=== PATIENT | female | born 1955 | race Caucasian/White ===

== ENCOUNTER 2018-12-07 21:17 | Observation (INO) | payer OTHER ==
--- NOTE | 2018-12-07 23:02 | ER ---
Nurse's Notes [facility] Name: Ashlyn Hughes Age: 63 yrs Sex: Female : 1955 Arrival Date: 12/07/2018 Time: 21:19 Bed 23 Private MD: Hailey Riley K Diagnosis: Cellulitis and acute lymphangitis of other parts of limb;Lymphedema, not elsewhere classified-right upper extremity Presentation: 12/07 21:48 Presenting complaint: Patient states: "I have had lymphedema in my right arm and today jd3 my right arm is swelling.". Transition of care: patient was not received from another setting of care. Onset of symptoms was December 07, 2018. Risk Assessment: Do you want to hurt yourself or someone else? Patient reports no desire to harm self or others. Initial Sepsis Screen: Does the patient meet any 2 criteria? No. Patient's initial sepsis screen is negative. Does the patient have a suspected source of infection? No. Patient's initial sepsis screen is negative. Care prior to arrival: None. 21:48 Method Of Arrival: Ambulatory jd3 21:48 Acuity: KLAUDIA 3 jd3 Historical: - Allergies: 21:51 No Known Allergies; jd3 - Home Meds: 21:51 losartan oral oral [Active]; Multiple Vitamins oral oral [Active]; Aspirin Oral jd3 [Active]; pro biotic [Active]; - PMHx: 21:51 breast cancer; Hypertension; jd3 - PSHx: 21:51 lymphectomy; jd3 - Immunization history:: Adult Immunizations up to date. - Social history:: Smoking status: Patient/guardian denies using tobacco. - Ebola Screening: : Patient negative for fever greater than or equal to 101.5 degrees Fahrenheit, and additional compatible Ebola Virus Disease symptoms. - Family history:: not pertinent. Screenin:25 Abuse screen: Denies threats or abuse. Denies injuries from another. Nutritional rr5 screening: No deficits noted. Tuberculosis screening: No symptoms or risk factors identified. Fall Risk None identified. Total Mercado Fall Scale indicates No Risk (0-24 pts). Assessment: 22:25 General: Appears in no apparent distress. comfortable, Behavior is calm, cooperative, rr5 appropriate for age. Pain: Denies pain. Neuro: Level of Consciousness is awake, alert, obeys commands, Oriented to person, place, time, situation, Appropriate for age. Cardiovascular: Capillary refill < 3 seconds Patient's skin is warm and dry. Respiratory: Airway is patent Respiratory effort is even, unlabored, Respiratory pattern is regular, symmetrical. GI: No signs and/or symptoms were reported involving the gastrointestinal system. : No signs and/or symptoms were reported regarding the genitourinary system. EENT: No signs and/or symptoms were reported regarding the EENT system. Derm: Skin temperature is warm Rash noted that is red, on right arm swollen right arm. Musculoskeletal: Swelling present in right arm. 23:40 Reassessment: Patient appears in no apparent distress at this time. Patient is alert, rr5 oriented x 3, equal unlabored respirations, skin warm/dry/pink. explained the plan of care and agreed to be admitted. 12/08 00:00 Reassessment: 's contact number SCOTT [phone] and [phone] ([email or web address]). rr5 00:30 Reassessment: Patient appears in no apparent distress at this time. Patient is alert, rr5 oriented x 3, equal unlabored respirations, skin warm/dry/pink. asleep on bed comfortably.no complaints made. Vital Signs: 12/07 21:51 BP 125 / 81; Pulse 99; Resp 17 S; Temp 98.9(O); Pulse Ox 95% on R/A; Weight 72.57 kg jd3 (R); Height 5 ft. 5 in. (165.10 cm) (R); Pain 2/10; 23:29 BP 134 / 79; Pulse 90; Resp 17; Pulse Ox 99% ; rr5 12/08 00:30 BP 131 / 70; Pulse 85; Resp 17; Pulse Ox 99% on R/A; rr5 12/07 21:51 Body Mass Index 26.63 (72.57 kg, 165.10 cm) jd3 ED Course: 12/07 21:19 Patient arrived in ED. am2 21:20 Hailey Riley MD is Private Physician. am2 21:49 Triage completed. jd3 21:52 Arm band placed on. jd3 22:04 James Luke MD is Attending Physician. marialuisa 22:10 Mamadou Simpson RN is Primary Nurse. rr5 22:59 Rosanne Gore MD is Hospitalizing Provider. marialuisa 23:17 UPPER EXTREMITY VENOUS UNILATE In Process Unspecified. EDMS 23:24 Patient has correct armband on for positive identification. Placed in gown. Bed in low rr5 position. Call light in reach. Side rails up X2. electronic news gathering editor on. Pulse ox on. NIBP on. 23:47 X-ray completed. Portable x-ray completed in exam room. Patient tolerated procedure kw well. 23:49 XRAY Chest (1 view) In Process Unspecified. EDMS 12/08 00:40 No provider procedures requiring assistance completed. Patient admitted, IV remains in rr5 place. intact, bleeding controlled, No redness/swelling at site. Pressure dressing applied. Administered Medications: 12/07 23:40 Drug: NS 0.9% 500 ml Route: IV; Rate: bolus; Site: left forearm; rr5 12/08 00:25 Follow up: Response: No adverse reaction; IV Status: Completed infusion; IV Intake: rr5 500ml 12/07 23:40 Dru.375 grams of (Zosyn 3.375 grams, NS 0.9% 100 ml) Route: IVPB; Infused Over: 60 rr5 mins; Site: left forearm; 12/08 00:29 Follow up: Response: No adverse reaction; IV Status: Completed infusion; IV Intake: rr5 100ml 00:30 Drug: NS 0.9% 1000 ml Route: IV; Rate: 125 ml/hr; Site: left forearm; rr5 00:30 Dru grams of (vancoMYCIN 1 grams, NS 0.9% 250 ml) Route: IVPB; Infused Over: 2 hrs; rr5 Site: left forearm; Intake: 00:25 IV: 500ml; Total: 500ml. rr5 00:29 IV: 100ml; Total: 600ml. rr5 Outcome: 12/07 23:01 Decision to Hospitalize by Provider. marialuisa 12/08 00:43 Admitted to ER Hold. Please see [facility] for further documentation. rr5 Condition: stable Instructed on the need for admit. 08:24 Patient left the ED. ss Signatures: Dispatcher [employer] James Grimaldo MD MD cha Smirch, Shelby, RN RN Taylor Hall Amanda am2 Davies, Jonathon RN RN jd3 Mamadou Simpson, RN RN rr5
--- NOTE | 2018-12-07 23:02 | EDPHYS ---
Physician Documentation [facility] Name: Ashlyn Huhges Age: 63 yrs Sex: Female : 1955 Arrival Date: 12/07/2018 Time: 21:19 Bed 23 Private MD: Hailey Riley K ED Physician James Luke HPI: 12/07 22:56 This 63 yrs old Female presents to ER via Ambulatory with complaints of Hand marialuisa Swelling, Arm Problem. 22:56 The patient or guardian reports decreased range of motion, pain, swelling, tenderness. marialuisa The complaints affect the right hand diffusely. Context: The problem was sustained at an unknown location. Onset: The symptoms/episode began/occurred 2 day(s) ago. Modifying factors: The symptoms are alleviated by elevation, holding still, the symptoms are aggravated by movement, dependent position. Associated signs and symptoms: The patient has no apparent associated signs or symptoms. Severity of symptoms: At their worst the symptoms were mild, moderate. The patient has not experienced similar symptoms in the past. Historical: - Allergies: 21:51 No Known Allergies; jd3 - Home Meds: 21:51 losartan oral oral [Active]; Multiple Vitamins oral oral [Active]; Aspirin Oral jd3 [Active]; pro biotic [Active]; - PMHx: 21:51 breast cancer; Hypertension; jd3 - PSHx: 21:51 lymphectomy; jd3 - Immunization history:: Adult Immunizations up to date. - Social history:: Smoking status: Patient/guardian denies using tobacco. - Ebola Screening: : Patient negative for fever greater than or equal to 101.5 degrees Fahrenheit, and additional compatible Ebola Virus Disease symptoms. - Family history:: not pertinent. ROS: 22:56 Constitutional: Negative for fever, chills, and weight loss, Eyes: Negative for injury, marialuisa pain, redness, and discharge, ENT: Negative for injury, pain, and discharge, Neck: Negative for injury, pain, and swelling, Cardiovascular: Negative for chest pain, palpitations, and edema, Respiratory: Negative for shortness of breath, cough, wheezing, and pleuritic chest pain, Abdomen/GI: Negative for abdominal pain, nausea, vomiting, diarrhea, and constipation, Back: Negative for injury and pain, : Negative for injury, bleeding, discharge, and swelling, Neuro: Negative for headache, weakness, numbness, tingling, and seizure, Psych: Negative for depression, anxiety, suicide ideation, homicidal ideation, and hallucinations, Allergy/Immunology: Negative for hives, rash, and allergies, Endocrine: Negative for neck swelling, polydipsia, polyuria, polyphagia, and marked weight changes, Hematologic/Lymphatic: Negative for swollen nodes, abnormal bleeding, and unusual bruising. 22:56 MS/extremity: Positive for pain, swelling, tenderness, of the right arm. Exam: 22:56 Constitutional: This is a well developed, well nourished patient who is awake, alert, marialuisa and in no acute distress. Head/Face: Normocephalic, atraumatic. Eyes: Pupils equal round and reactive to light, extra-ocular motions intact. Lids and lashes normal. Conjunctiva and sclera are non-icteric and not injected. Cornea within normal limits. Periorbital areas with no swelling, redness, or edema. ENT: Nares patent. No nasal discharge, no septal abnormalities noted. Tympanic membranes are normal and external auditory canals are clear. Oropharynx with no redness, swelling, or masses, exudates, or evidence of obstruction, uvula midline. Mucous membranes moist. Neck: Trachea midline, no thyromegaly or masses palpated, and no cervical lymphadenopathy. Supple, full range of motion without nuchal rigidity, or vertebral point tenderness. No Meningismus. Chest/axilla: Normal chest wall appearance and motion. Nontender with no deformity. No lesions are appreciated. Cardiovascular: Regular rate and rhythm with a normal S1 and S2. No gallops, murmurs, or rubs. Normal PMI, no JVD. No pulse deficits. Respiratory: Lungs have equal breath sounds bilaterally, clear to auscultation and percussion. No rales, rhonchi or wheezes noted. No increased work of breathing, no retractions or nasal flaring. Abdomen/GI: Soft, non-tender, with normal bowel sounds. No distension or tympany. No guarding or rebound. No evidence of tenderness throughout. Back: No spinal tenderness. No costovertebral tenderness. Full range of motion. Female : Normal external genitalia. Neuro: Awake and alert, GCS 15, oriented to person, place, time, and situation. Cranial nerves II-XII grossly intact. Motor strength 5/5 in all extremities. Sensory grossly intact. Cerebellar exam normal. Normal gait. Psych: Awake, alert, with orientation to person, place and time. Behavior, mood, and affect are within normal limits. 22:56 Skin: cellulitis, that is mild, that is moderate, induration, that is mild is noted, located on the right arm. Vital Signs: 21:51 BP 125 / 81; Pulse 99; Resp 17 S; Temp 98.9(O); Pulse Ox 95% on R/A; Weight 72.57 kg jd3 (R); Height 5 ft. 5 in. (165.10 cm) (R); Pain 10/10; 23:29 BP 134 / 79; Pulse 90; Resp 17; Pulse Ox 99% ; rr5 12/08 00:30 BP 131 / 70; Pulse 85; Resp 17; Pulse Ox 99% on R/A; rr5 12/07 21:51 Body Mass Index 26.63 (72.57 kg, 165.10 cm) jd3 MDM: 12/07 22:04 Patient medically screened. [facility] 12/07 22:56 Order name: Basic Metabolic Panel [facility] 12/07 22:56 Order name: CBC with Diff [facility] 12/07 22:56 Order name: LFT's 12/07 22:56 Order name: Magnesium [facility] 12/07 22:56 Order name: NT PRO-BNP [facility] 12/07 22:56 Order name: PT-INR [facility] 12/07 22:56 Order name: Troponin (emerg Dept Use Only) 12/07 22:56 Order name: XRAY Chest (1 view) 12/07 22:56 Order name: Blood Culture Adult (2) [facility] 12/07 22:56 Order name: Procalcitonin [facility] 12/07 23:20 Order name: Basic Metabolic Panel EDMI 12/07 23:20 Order name: Basic Metabolic Panel EDMS 12/07 23:20 Order name: CBC with Automated Diff EDMS 12/07 23:20 Order name: CBC with Automated Diff EDMS 12/07 22:56 Order name: EKG; Complete Time: 22:58 12/07 22:56 Order name: Cardiac monitoring; Complete Time: 23:23 marialuisa 12/07 22:56 Order name: EKG - Nurse/Tech; Complete Time: 00:06 [facility] 12/07 22:56 Order name: IV Saline Lock; Complete Time: 23:23 [facility] 12/07 22:56 Order name: Labs collected and sent; Complete Time: 00:06 [facility] 12/07 22:56 Order name: O2 Per Protocol; Complete Time: 23:23 [facility] 12/07 22:56 Order name: O2 Sat Monitoring; Complete Time: 23:23 [facility] 12/07 22:59 Order name: UPPER EXTREMITY VENOUS UNILATE [facility] 12/07 23:19 Order name: CONS Pharmacy Consult [facility] 12/07 23:19 Order name: CONS Pharmacy Consult [facility] 12/07 23:20 Order name: Regular EDMS Administered Medications: 23:40 Drug: NS 0.9% 500 ml Route: IV; Rate: bolus; Site: left forearm; rr5 12/08 00:25 Follow up: Response: No adverse reaction; IV Status: Completed infusion; IV Intake: rr5 500ml 12/07 23:40 Dru.375 grams of (Zosyn 3.375 grams, NS 0.9% 100 ml) Route: IVPB; Infused Over: 60 rr5 mins; Site: left forearm; 12/08 00:29 Follow up: Response: No adverse reaction; IV Status: Completed infusion; IV Intake: rr5 100ml 00:30 Drug: NS 0.9% 1000 ml Route: IV; Rate: 125 ml/hr; Site: left forearm; rr5 00:30 Dru grams of (vancoMYCIN 1 grams, NS 0.9% 250 ml) Route: IVPB; Infused Over: 2 hrs; rr5 Site: left forearm; Disposition: 12/07/18 23:01 Hospitalization ordered by Rosanne Gore for Inpatient Admission. Preliminary diagnosis are Cellulitis and acute lymphangitis of other parts of limb, Lymphedema, not elsewhere classified - right upper extremity. - Bed requested for Telemetry/MedSurg (Inpatient). - Status is Inpatient Admission. ss - Condition is Stable. - Problem is new. - Symptoms have improved. UTI on Admission? No Signatures: Dispatcher [employer] EDMI Lizzeth Alcala Corey, MD MD cha Smirch, Shelby, RN RN ss Davies, Jonathon, RN RN jd3 Roque, Raymond, RN RN rr5 Klaudia Addison ar5 Corrections: (The following items were deleted from the chart) 12/07 22:59 22:58 Extremity Venous Uni [employer]+[id number].RAD.BRZ ordered. EDMS EDMS 23:52 23:01 Hospitalization Ordered by Rosanne Gore MD for Inpatient Admission. Preliminary ar5 diagnosis is Cellulitis and acute lymphangitis of other parts of limb; Lymphedema, not elsewhere classified - right upper extremity. Bed requested for Telemetry/MedSurg (Inpatient). Status is Inpatient Admission. Condition is Stable. Problem is new. Symptoms have improved. UTI on Admission? No. marialuisa 12/08 07:07 04 23:52 12/07/2018 23:01 Hospitalization Ordered by Rosanne Gore MD for Inpatient bd Admission. Preliminary diagnosis is Cellulitis and acute lymphangitis of other parts of limb; Lymphedema, not elsewhere classified - right upper extremity. Bed requested for [facility] ER HOLD. Status is Inpatient Admission. Condition is Stable. Problem is new. Symptoms have improved. UTI on Admission? No. ar5 12/08 08:24 07:07 12/07/2018 23:01 Hospitalization Ordered by Rosanne Gore MD for Inpatient ss Admission. Preliminary diagnosis is Cellulitis and acute lymphangitis of other parts of limb; Lymphedema, not elsewhere classified - right upper extremity. Bed requested for Telemetry/MedSurg (Inpatient). Status is Inpatient Admission. Condition is Stable. Problem is new. Symptoms have improved. UTI on Admission? No. bd
[2018-12-07] MEDS ORDERED: NA CHLORIDE 0.9% 250 ML ONE (23:16)
[2018-12-07] MEDS ORDERED: VANCOMYCIN 1 GM/VIAL ONE (23:16)
[2018-12-07] MEDS ORDERED: ACETAMINOPHEN 500 MG TAB PO PRN (23:17)
[2018-12-07] MEDS ORDERED: ONDANSETRON 4 MG/2 ML VIAL IV PRN (23:17)
[2018-12-07] MEDS ORDERED: PIPER/TAZO/NS 3.375gm 3.375 GM/100 ML BAG ONE (23:17)
[2018-12-07] MEDS ORDERED: MORPHINE 4 MG/ML SYR IV PRN (23:17)
[2018-12-07] MEDS ORDERED: NA CHLORIDE 0.9% 1,000 ML ONE (23:17)
[2018-12-07] MEDS ORDERED: VANCOMYCIN/NS 1 gm 1 GM/250 ML BAG IVPB SCH (23:30)
[2018-12-07] MEDS: NA CHLORIDE 0.9% 1,000 ML IV SCH (23:45)
[2018-12-08 00:07] LABS: Absolute Lymphocytes (CBC) 1.6 K/uL (0.7-4.9); Absolute Monocytes 0.8 K/uL (0.1-1.3); Absolute Neutrophil 7.3 K/uL (1.8-8.0); Basophils % 1.1 % (0-1.3); Eosinophils % 1.1 % (0-4.4); Lymphocytes % 16.3 % (15.3-44.8); RBC Red Blood Cell Count 4.84 M/uL (3.86-4.86)
[2018-12-08 00:11] LABS: Protime INR 1.05
[2018-12-08 00:34] LABS: ALT/SGPT 28 U/L (12-78); AST/SGOT 21 U/L (15-37); Albumin 3.9 g/dL (3.4-5.0); Alkaline Phosphatase 98 U/L (45-117); BUN Blood Urea Nitrogen 13 mg/dL (7-18); Bicarbonate 30 mmol/L (21-32); Bilirubin Direct 0.2 mg/dL (0-0.2); Bilirubin Total 1.1 mg/dL (0.2-1.0); Glucose Level 114 mg/dL (74-106); Magnesium 2.3 mg/dL (1.8-2.4); NT PRO-BNP 35 pg/mL (<125); Potassium 3.5 mmol/L (3.5-5.1); Protein, Total 7.5 g/dL (6.4-8.2); Sodium Level 139 mmol/L (136-145); Troponin (Emerg Dept Use Only) < 0.02 ng/mL (0.0-0.045)
[2018-12-08 05:53] LABS: BUN Blood Urea Nitrogen 12 mg/dL (7-18); Bicarbonate 28 mmol/L (21-32); Glucose Level 115 mg/dL (74-106); Potassium 3.5 mmol/L (3.5-5.1); Sodium Level 143 mmol/L (136-145)
[2018-12-08 05:55] LABS: Absolute Lymphocytes (CBC) 1.7 K/uL (0.7-4.9); Absolute Monocytes 0.8 K/uL (0.1-1.3); Absolute Neutrophil 5.6 K/uL (1.8-8.0); Basophils % 1.1 % (0-1.3); Eosinophils % 1.9 % (0-4.4); MPV 8.9 fL (7.6-11.3); Monocytes % 9.2 % (3.3-12.3); RBC Red Blood Cell Count 4.77 M/uL (3.86-4.86)
--- NOTE | 2018-12-08 07:59 | RAD REPORT ---
EXAM DESCRIPTION: Ethan Single View12/07/2018 11:48 pm CLINICAL HISTORY: Cough COMPARISON: none FINDINGS: The lungs appear clear of acute infiltrate. The heart is normal size IMPRESSION: No acute abnormalities displayed
--- NOTE | 2018-12-08 08:05 | RAD REPORT ---
EXAM DESCRIPTION: US UPPER EXTREMITY VENOUS UNILATE12/07/2018 11:19 pm CLINICAL HISTORY: Right arm pain COMPARISON: None FINDINGS: The right internal jugular, right subclavian, right cephalic, right axillary, right brach ial, right basilic, right ulnar and right radial veins are generally compressible and demonstrate au gmentation. Doppler demonstrates good flow. IMPRESSION: No evidence of thrombus within the veins of the right upper extremity
--- NOTE | 2018-12-08 09:44 | P.HP ---
Certification for Inpatient Patient admitted to: Inpatient With expected LOS: >2 Midnights Patient will require the following post-hospital care: None Practitioner: I am a practitioner with admitting privileges, knowledge of patient current condition, hospital course, and medical plan of care. Services: Services provided to patient in accordance with Admission requirements found in Title 42 Section 412.3 of the Code of Federal Regulations Patient History Date of Service: 12/08/18 Reason for admission: Right upper extremity cellulitis History of Present Illness: Patient is a 63-year-old female with a history of breast cancer and right- sided mastectomy 27 years ago. Since that time she has had some lymphedema on the right upper extremity. She had been doing well otherwise until 24 hr ago when she noticed significant erythema and edema of that right arm. The redness streak all the way up to the axillary region. Patient decided to come into the hospital for further evaluation. In the ER patient was started on IV antibiotics. Will cover with dual coverage intravenously until redness is improved. Allergies No Known Allergies Allergy (Unverified 12/08/18 01:15) - Past Medical/Surgical History -: breast cancer -: hypertension -: lymphectomy -: mastectomy - Family History Father Medical History: Other (see notes) Notes: clotting factor Mother Medical History: Hypertension, Other (see notes) Notes: glaucoma Sister Medical History: Other (see notes) Notes: lupus - Social History Smoking Status: Never smoker Alcohol use: No CD- Drugs: No Caffeine use: Yes Review of Systems 10-point ROS is otherwise unremarkable Physical Examination - Vital Signs Temperature: 96.7 F Blood Pressure: 121/67 Pulse: 84 Respirations: 16 Pulse Ox (%): 98 - Physical Exam General: Alert, In no apparent distress, Oriented x3 HEENT: Atraumatic, PERRLA, Mucous membr. moist/pink, EOMI, Sclerae nonicteric Neck: Supple, 2+ carotid pulse no bruit, No LAD, Without JVD or thyroid abnormality Respiratory: Clear to auscultation bilaterally, Normal air movement Cardiovascular: Regular rate/rhythm, Normal S1 S2 Gastrointestinal: Normal bowel sounds, Soft and benign, Non-distended, No tenderness Musculoskeletal: No clubbing, No swelling, No tenderness Integumentary: Tenderness/swelling, Erythema Neurological: Normal gait, Normal speech, Normal strength at 5/5 x4 extr, Normal tone, Sensation intact, Cranial nerves 3-12 intact, Normal affect Lymphatics: No axilla or inguinal lymphadenopathy - Studies Laboratory Data (last 24 hrs) 12/07/18 23:40: PT 12.4, INR 1.05 12/07/18 23:40: WBC 9.9, Hgb 14.5, Hct 42.0, Plt Count 228 12/07/18 23:40: Sodium 139, Potassium 3.5, BUN 13, Creatinine 0.70, Glucose 114 H, Magnesium 2.3, Total Bilirubin 1.1 H, AST 21, ALT 28, Alkaline Phosphatase 98 Microbiology Data (last 24 hrs): 12/07/18 23:59 Blood - Blood Anaerobic Blood Culture - Final Assessment & Plan - Problems (Diagnosis) (1) Lymphangitis Current Visit: Yes Status: Acute (2) Cellulitis of right upper extremity Current Visit: Yes Status: Acute - Plan 1. Continue with IV antibiotic 2. Gentle IV hydration 3. Monitor CBC 4. Strict blood sugar monitoring 5. Pain control 6. GI and DVT prophylaxis Discharge Plan: Home Plan to discharge in: Greater than 2 days - Advance Directives Does patient have a Living Will: No Does patient have a Durable POA for Healthcare: Yes - Code Status/Comfort Care Code Status Assessed: Yes Code Status: Full Code Critical Care: No Time Spent Managing PTS Care (In Minutes): 45
[2018-12-08] MEDS ORDERED: CLINDAMYCIN INJ 600 MG in NA CHLORIDE 0.9% 50 ML IV SCH (10:00)
[2018-12-08] MEDS: NA CHLORIDE 0.9% 1,000 ML IV SCH (10:20)
--- NOTE | 2018-12-08 10:44 | EKG ---
Test Date: 2018-12-07 Test Time: 23:26:50 Office Automation Technician: AG3 MEASUREMENT RESULTS: Intervals: Rate: 86 NH: 132 QRSD: 74 QT: 354 QTc: 423 [place]: P: 61 NH: 132 QRS: 53 T: 34 INTERPRETIVE STATEMENTS: Normal sinus rhythm Normal ECG No previous ECG available for comparison Electronically Signed On 12-08-18 10:44:08 CDT by Jamie Donaldson
[2018-12-08 10:45] LABS: Urine Appearance CLEAR; Urine Bilirubin NEGATIVE (NEG); Urine Blood NEGATIVE (NEG); Urine Color YELLOW; Urine Glucose NEGATIVE (NEG); Urine Protein NEGATIVE (NEG); Urine Urobilinogen 0.2 mg/dL (0.2-1.0); Urine pH 5.5 (5.0-7.0)
[2018-12-08 11:11] LABS: Urine Microscopic Reflex ORDER UMIC
[2018-12-08 11:13] LABS: Urine Bacteria <20 /HPF (<20); Urine Culture Reflex Order NOT NEEDED; Urine RBC <5 /HPF (NONE SEEN)
[2018-12-08] MEDS ORDERED: VANCOMYCIN 1.25 GM in NA CHLORIDE 0.9% 250 ML IVPB SCH ×2 (14:00→17:00)
== END 2018-12-08 17:00 | disposition home or self-care (01) ==
LOC: ER 21:17 → INTOOBSV 12-08 00:53 → ERHOLD 12-08 00:53 → 2ND 12-08 07:39
PROVIDERS: ADMIT Hospitalist; ATTEND Family Medicine
DX: L03.113 Cellulitis of right upper limb (principal); I89.1 Lymphangitis; I10 Essential (primary) hypertension; Z85.3 Personal history of malignant neoplasm of breast
CPT/HCPCS: 36415; 71045; 80048; 80076; 81003; 81015; 83735; 83880; 84145; 84484; 85025; 85610; 87040; 87086; 87088; 93005; 93971; 96365; 96375; 99285; G0378; J2543; J7030